=== PATIENT | female | born 1980 | race Hispanic/Latino ===

== ENCOUNTER 2018-05-21 23:18 | Inpatient (IN) | payer OTHER ==
[~2018-05-21] VITALS: Ht 142.2 cm; Wt 104.8 kg
[2018-05-21] MEDS ORDERED: DEXTROSE 50% SYRINGE 50 ML IV STA (23:57)
[2018-05-22] VITALS (23 sets, daily range): BP systolic 107–157; BP diastolic 55–76
[2018-05-22] MEDS: DEXTROSE 5%/0.9% SOD CHL 1,000 ML IV SCH ×2 (00:13→05:45)
[2018-05-22] MEDS ORDERED: ONDANSETRON HCL INJ 2 MG/ML VIAL IV PRN (00:15)
[2018-05-22] MEDS ORDERED: AGGRENOX 25 MG-1 CAP PO (02:43)
[2018-05-22] MEDS ORDERED: FERROUS SULFAT325 MG PO (02:43)
[2018-05-22] MEDS ORDERED: METFORMIN HCL500 MG PO (02:43)
[2018-05-22] MEDS ORDERED: Oxcarbazepine (02:43)
[2018-05-22] MEDS ORDERED: GLYBURID-METFO1 EACH PO (02:43)
[2018-05-22] MEDS ORDERED: DULCOLAX STOOL100 MG PO (02:43)
[2018-05-22] MEDS ORDERED: LANTUS 3ML100 UNITS/ SC (02:43)
[2018-05-22] MEDS ORDERED: LEVOTHYROXINE100 MCG PO (02:43)
[2018-05-22] MEDS ORDERED: GEMFIBROZIL600 MG PO (02:43)
[2018-05-22] MEDS ORDERED: SIMVASTATIN40 MG PO (02:43)
[2018-05-22] MEDS ORDERED: PIOGLITAZONE HC45 MG PO (02:43)
[2018-05-22] MEDS ORDERED: INSULIN DETEMIR 100 UNIT/ML PEN SQ PRN (05:15)
[2018-05-22] MEDS: LEVOTHYROXINE SODIUM 100 MCG TAB PO SCH (05:47)
[2018-05-22 06:07] LABS: BASOPHILS % 0.2 % (0.0-1.0); EOSINOPHILS % 0.5 % (0.0-6.0); HEMOGLOBIN 10.1 g/dL (12.0-16.0); LYMPHOCYTES % 24.3 % (18.0-39.1); MEAN CORPUSCULAR HEMOGLOBIN 33.8 pg (28-32); MEAN CORPUSCULAR HGB CONC 33.7 g/dL (31-35); MEAN CORPUSCULAR VOLUME 100.3 fL (81-99); MONOCYTES # (AUTO) 0.6 (0.2-0.8); MONOCYTES % 7.2 % (4.4-11.3); NEUTROPHILS # (AUTO) 5.4 (2.1-6.9); NEUTROPHILS % 67.2 % (38.7-80.0); PLATELET COUNT 327 x10e3/uL (140-360); RED BLOOD COUNT 2.99 x10e6/uL (3.6-5.1); RED CELL DISTRIBUTION WIDTH 13.1 % (11.7-14.4)
[2018-05-22 06:23] LABS: ANION GAP 11.9 mmol/L (8-16); BLOOD UREA NITROGEN 9 mg/dL (7-26); BUN/CREATININE RATIO 12 (6-25); CALCIUM 8.5 mg/dL (8.4-10.2); CARBON DIOXIDE 22 mmol/L (22-29); CHLORIDE 95 mmol/L (98-107); CHOL/HDL RATIO 2.7 (3.0-3.6); CHOLESTEROL 101 MD/DL (0-199); CREATININE, SERUM 0.73 mg/dL (0.57-1.11); EST GLOMERULAR FILTRATION RATE > 60 ML/MIN (60-); GLUCOSE 142 mg/dL (74-118); HDL CHOLESTEROL 38 MG/DL (40-60); LDL CHOLESTEROL 53 MG/DL (60-130); POTASSIUM 3.9 mmol/L (3.5-5.1); SODIUM 125 mmol/L (136-145); TRIGLYCERIDES 50 MG/DL (0-149)
[2018-05-22] MEDS ORDERED: DEXTROSE 50% SYRINGE 50 ML IV PRN (06:30)
[2018-05-22 06:46] LABS: THYROID STIMULATING HORMONE 1.522 uIU/mL (0.350-4.940)
--- NOTE | 2018-05-22 07:21 | History and Physical ---
PRIMARY CARE PHYSICIAN: Dr. Anderson. CHIEF COMPLAINT: Low blood sugar. HISTORY OF PRESENT ILLNESS: This is a 38-year-old woman with a history of mental retardation. All the history is obtained from the sister at bedside who takes care of her. Patient had a blood sugar as low as 32 last Wednesday. She was given peanut butter and other treatment, which then resolved. Now developing blood sugar of 40, gave her peanut butter and a coke, but did not improve, therefore taken to free standing ER, found to have glucose of at that facility, and was sent here for further management. Patient is on oral medications consisting of metformin, Actos, and glyburide as well as insulin regimen. PAST MEDICAL HISTORY: Diabetes mellitus type 2, hypothyroidism, hyperlipidemia, epilepsy, moyamoya disease, history of constipation, iron-deficiency anemia, and hypertriglyceridemia. PAST SURGICAL HISTORY: None. ALLERGIES: PER ELECTRONIC MEDICAL RECORD. FAMILY/SOCIAL HISTORY: Patient lives with her sister. Able to perform all ADLs, but needs assistance with taking a shower. MEDICATIONS: Per electronic medical record. REVIEW OF SYSTEMS: Unobtainable. PHYSICAL EXAM VITAL SIGNS: Reviewed. GENERAL: A tired-appearing woman resting in bed. HEENT: Atraumatic. CARDIOVASCULAR: Normal S1 and S2. LUNGS: Moderate breath sounds. ABDOMEN: Soft, nontender, and nondistended. EXTREMITIES: No edema or calf tenderness. NEUROLOGICAL: Moving all extremities. SKIN: Dry. PSYCHIATRIC: Flat affect. LABS: Reviewed. MEDICATIONS: Reviewed. ASSESSMENT AND PLAN: This is a 38-year-old woman with: 1. Hypoglycemia. 2. Diabetes mellitus type 2. 3. Hyperlipidemia. 4. Hypertriglyceridemia. 5. Iron-deficiency anemia. 6. Epilepsy. 7. Mental retardation. PLAN 1. Hold all oral antiglycemic agents. 2. Reduce insulin regimen. 3. Obtain hemoglobin A1c and lipid panel. 4. Obtain TSH. 5. Start diabetic diet. 6. Continue other home medication regimen. 7. Monitor closely in the ICU. 8. Use SCDs and Pepcid for prophylaxis. Critical care time more than 35 minutes. Job#: [id number] VAS
[2018-05-22] MEDS: FAMOTIDINE 20 MG TAB PO SCH ×2 (07:46→17:00)
[2018-05-22] MEDS: INSULIN REGULAR, HUMAN 100 UNIT/1 ML 3ML VIAL SQ SCH ×4 (07:47→20:15)
[2018-05-22] MEDS: GEMFIBROZIL 600 MG TAB PO SCH ×2 (07:48→17:00)
[2018-05-22] MEDS: FERROUS SULFATE 325 MG TAB PO SCH ×2 (07:48→17:00)
[2018-05-22] MEDS: DOCUSATE SODIUM 100 MG CAP PO SCH ×2 (07:48→17:00)
[2018-05-22] MEDS: SODIUM CHLORIDE 0.9% 1000ML 1,000 ML IV SCH (17:00)
[2018-05-22] MEDS: SIMVASTATIN 40 MG TAB PO SCH (20:15)
[2018-05-23] VITALS (7 sets, daily range): BP systolic 120–144; BP diastolic 56–64
[2018-05-23 05:14] LABS: BASOPHILS % 0.4 % (0.0-1.0); EOSINOPHILS # (AUTO) 0.1 (0.0-0.4); EOSINOPHILS % 1.3 % (0.0-6.0); HEMATOCRIT 32.3 % (34.2-44.1); HEMOGLOBIN 10.7 g/dL (12.0-16.0); LYMPHOCYTES # (AUTO) 2.2 (1.0-3.2); MEAN CORPUSCULAR HGB CONC 33.1 g/dL (31-35); MEAN CORPUSCULAR VOLUME 102.5 fL (81-99); MONOCYTES # (AUTO) 0.5 (0.2-0.8); MONOCYTES % 10.5 % (4.4-11.3); NEUTROPHILS # (AUTO) 1.9 (2.1-6.9); NEUTROPHILS % 40.2 % (38.7-80.0); PLATELET COUNT 335 x10e3/uL (140-360); RED BLOOD COUNT 3.15 x10e6/uL (3.6-5.1); RED CELL DISTRIBUTION WIDTH 13.3 % (11.7-14.4)
[2018-05-23 05:41] LABS: ALANINE AMINOTRANSFERASE 11 IU/L (0-55); ALBUMIN 3.5 g/dL (3.5-5.0); ALKALINE PHOSPHATASE 47 IU/L (40-150); BLOOD UREA NITROGEN 8 mg/dL (7-26); BUN/CREATININE RATIO 11 (6-25); CALCIUM 8.8 mg/dL (8.4-10.2); CARBON DIOXIDE 20 mmol/L (22-29); CHLORIDE 101 mmol/L (98-107); CREATININE, SERUM 0.76 mg/dL (0.57-1.11); EST GLOMERULAR FILTRATION RATE > 60 ML/MIN (60-); GLUCOSE 113 mg/dL (74-118); SODIUM 131 mmol/L (136-145)
[2018-05-23] MEDS: FAMOTIDINE 20 MG TAB PO SCH ×2 (06:18→17:44)
[2018-05-23] MEDS: LEVOTHYROXINE SODIUM 100 MCG TAB PO SCH (06:18)
[2018-05-23] MEDS: INSULIN REGULAR, HUMAN 100 UNIT/1 ML 3ML VIAL SQ SCH ×4 (07:30→21:00)
[2018-05-23] MEDS: DOCUSATE SODIUM 100 MG CAP PO SCH ×2 (09:00→17:44)
[2018-05-23] MEDS: GEMFIBROZIL 600 MG TAB PO SCH ×2 (09:00→17:45)
[2018-05-23] MEDS: FERROUS SULFATE 325 MG TAB PO SCH ×2 (09:00→17:45)
[2018-05-23 11:46] LABS: BILIRUBIN,URINE NEGATIVE (NEGATIVE); CLARITY,URINE CLEAR (CLEAR); COLOR,URINE YELLOW (YELLOW); KETONES,URINE NEGATIVE (NEGATIVE); LEUKOCYTE ESTERASE ,URINE NEGATIVE (NEGATIVE); NITRITE,URINE NEGATIVE (NEGATIVE); PROTEIN,URINE DIPSTICK NEGATIVE (NEGATIVE); URINE UROBILINOGEN 0.2 mg/dL (0.2 - 1)
[2018-05-23 11:53] LABS: BACTERIA,URINE FEW /HPF; EPITHELIAL CELLS,URINE FEW /LPF
[2018-05-23] MEDS: SODIUM CHLORIDE 0.9% 1000ML 1,000 ML IV SCH (13:30)
[2018-05-23] MEDS: SIMVASTATIN 40 MG TAB PO SCH (21:07)
[2018-05-24 01:03] VITALS: BP 121/60
[2018-05-24] MEDS: LEVOTHYROXINE SODIUM 100 MCG TAB PO SCH (05:33)
[2018-05-24 06:47] VITALS: BP 123/65
[2018-05-24 08:00] VITALS: BP 127/63
[2018-05-24] MEDS: FAMOTIDINE 20 MG TAB PO SCH (08:39)
[2018-05-24] MEDS: DOCUSATE SODIUM 100 MG CAP PO SCH (08:39)
[2018-05-24] MEDS: FERROUS SULFATE 325 MG TAB PO SCH (08:40)
[2018-05-24] MEDS: GEMFIBROZIL 600 MG TAB PO SCH (08:40)
[2018-05-24] MEDS: INSULIN REGULAR, HUMAN 100 UNIT/1 ML 3ML VIAL SQ SCH ×2 (08:41→11:30)
[2018-05-24 09:21] VITALS: BP 127/63
[2018-05-24 12:00] VITALS: BP 131/63
== END 2018-05-24 12:45 | disposition home or self-care (01) | DRG 638 ==
LOC: FSED 23:18 → ERHOLD 05-22 00:32 → ICU 05-22 02:15 → MED/SURG2 05-22 16:05
PROVIDERS: ADMIT Internal Medicine; ATTEND Internal Medicine
DX: E11.649 Type 2 diabetes mellitus with hypoglycemia without coma (principal); Z68.43 Body mass index [BMI] 50.0-59.9, adult; Z79.4 Long term (current) use of insulin; E78.5 Hyperlipidemia, unspecified; E78.1 Pure hyperglyceridemia; D50.9 Iron deficiency anemia, unspecified; G40.909 Epilepsy, unspecified, not intractable, without status epilepticus; F79 Unspecified intellectual disabilities; E66.01 Morbid (severe) obesity due to excess calories
CPT/HCPCS: 36415; 80048; 80053; 80061; 81001; 82948; 83036; 84443; 85025; 96361; 99284; J7030; J7042; J7799

== ENCOUNTER → 2022-06-30 | Day surgery (SDC) | payer OTHER ==
[~2022-06-30] MED LIST: ABILIFY5 MG PO; AGGRENOX 25 MG-1 CAP PO; AMOXICILLIN500 MG PO; DULCOLAX STOOL100 MG PO; FERROUS SULFAT325 MG PO; GABAPENTIN100 MG PO; GEMFIBROZIL600 MG PO; GLYBURID-METFO1 EACH PO; LANTUS 3ML100 UNITS/ SC; LEVOTHYROXINE100 MCG PO; LIDOCAINE HCL 2% LOCAL INJ 5 ML SDV VIAL INJ ONE; METFORMIN HCL500 MG PO; OR PHACO EYE KIT ONE; Oxcarbazepine PO; PIOGLITAZONE HC45 MG PO; POVIDONE IODINE 0.05% 0.05 % ML PO ONE; PREOP PHACO EYE KIT ONE; PROPOFOL IV EMULSION 10 MG/ML 20 ML VIAL ONE; SERTRALINE HCL100 MG PO; SEVOFLURANE INHAL SOLN 250 ML PEN BTL ONE; SIMVASTATIN40 MG PO; SODIUM ACETATE PO; VITAMIN D250 MCG PO
[2022-06-30 09:05] VITALS: BP 137/71
== END | disposition home or self-care (01) ==
LOC: OR 06:05
PROVIDERS: ATTEND Ophthalmology
DX: H25.12 Age-related nuclear cataract, left eye (principal); H25.013 Cortical age-related cataract, bilateral; E11.39 Type 2 diabetes mellitus with other diabetic ophthalmic complication; E11.49 Type 2 diabetes mellitus with other diabetic neurological complication; Q90.9 Down syndrome, unspecified; E03.4 Atrophy of thyroid (acquired); E11.42 Type 2 diabetes mellitus with diabetic polyneuropathy; E11.22 Type 2 diabetes mellitus with diabetic chronic kidney disease; I12.9 Hypertensive chronic kidney disease with stage 1 through stage 4 chronic kidney disease, or unspecified chronic kidney disease; N18.2 Chronic kidney disease, stage 2 (mild); E66.01 Morbid (severe) obesity due to excess calories; D50.9 Iron deficiency anemia, unspecified; E55.9 Vitamin D deficiency, unspecified; E78.00 Pure hypercholesterolemia, unspecified; E87.1 Hypo-osmolality and hyponatremia; D49.6 Neoplasm of unspecified behavior of brain; R56.9 Unspecified convulsions; R47.9 Unspecified speech disturbances; F32.9 Major depressive disorder, single episode, unspecified; Z79.4 Long term (current) use of insulin; Z79.84 Long term (current) use of oral hypoglycemic drugs; Z79.899 Other long term (current) drug therapy; Z68.35 Body mass index [BMI] 35.0-35.9, adult; Z86.73 Personal history of transient ischemic attack (TIA), and cerebral infarction without residual deficits
CPT/HCPCS: 36415; 66984; 81025; 82948; J2001; J2704; V2632